=== PATIENT | female | born 1995 | race Caucasian/White ===

== ENCOUNTER 2020-05-08 15:57 | Emergency (ER) | payer OTHER ==
[~2020-05-08] VITALS: Ht 154.9 cm; Wt 65.8 kg
[2020-05-08] MEDS ORDERED: PRENATAL + DHA1 EAC1 (16:06)
[2020-05-08] MEDS ORDERED: FIORINAL 50-321 EACH PO (20:57)
== END 2020-05-08 21:52 | disposition home or self-care (01) ==
LOC: ER 15:57
DX: O26.891 Other specified pregnancy related conditions, first trimester (principal); R51.9 Headache, unspecified; Z3A.10 10 weeks gestation of pregnancy; Z03.818 Encounter for observation for suspected exposure to other biological agents ruled out

== ENCOUNTER → 2020-07-17 | Outpatient (CLI) | payer OTHER ==
[~2020-07-17] MED LIST: FIORINAL 50-321 EACH PO; PRENATAL + DHA1 EAC1
== END | disposition home or self-care (01) ==
LOC: PRENATAL 08:00
PROVIDERS: ATTEND Obstetrics & Gynecology Maternal & Fetal Medicine
DX: O35.0XX1 Maternal care for (suspected) central nervous system malformation in fetus, fetus 1 (principal); O35.3XX1 Maternal care for (suspected) damage to fetus from viral disease in mother, fetus 1; O98.512 Other viral diseases complicating pregnancy, second trimester; Z36.89 Encounter for other specified antenatal screening; Z3A.21 21 weeks gestation of pregnancy

== ENCOUNTER 2020-08-28 14:10 | Outpatient (CLI) | payer OTHER | END 2020-08-28 19:55 | disposition home or self-care (01) | LOC: OBS/DEL 14:10 | PROVIDERS: ATTEND Obstetrics & Gynecology | DX: O26.892 Other specified pregnancy related conditions, second trimester (principal); R10.2 Pelvic and perineal pain; Z3A.37 37 weeks gestation of pregnancy ==

== ENCOUNTER 2020-09-03 07:05 | Inpatient (IN) | payer OTHER ==
[~2020-09-03] VITALS: Ht 154.9 cm; Wt 73.5 kg
[2020-09-04] MEDS ORDERED: ATABEX OB TABL1 EACH PO (08:38)
== END 2020-09-04 14:33 | disposition home or self-care (01) | DRG 833 ==
LOC: OBS/DEL 07:05 → LDR 09:43
PROVIDERS: ADMIT Obstetrics & Gynecology; ATTEND Obstetrics & Gynecology
PROC: BY4FZZZ Ultrasonography of Third Trimester, Single Fetus (ICD-10-PCS; principal; 2020-09-03)
PROC: BT4JZZZ Ultrasonography of Kidneys and Bladder (ICD-10-PCS; 2020-09-03)
DX: O99.891 Other specified diseases and conditions complicating pregnancy (principal); N20.0 Calculus of kidney; Z3A.28 28 weeks gestation of pregnancy; Z20.822 Contact with and (suspected) exposure to COVID-19

== ENCOUNTER 2020-11-05 12:35 | Outpatient (CLI) | payer OTHER ==
[~2020-11-05 12:35] MED LIST changes: +ATABEX OB TABL1 EACH PO
== END 2020-11-06 16:27 | disposition home or self-care (01) ==
LOC: OBS/DEL 12:35
PROVIDERS: ATTEND Obstetrics & Gynecology
DX: O47.1 False labor at or after 37 completed weeks of gestation (principal); Z3A.37 37 weeks gestation of pregnancy

== ENCOUNTER 2020-11-07 17:11 | Inpatient (IN) | payer OTHER ==
[~2020-11-07] VITALS: Ht 154.9 cm; Wt 78.5 kg
== END 2020-11-10 15:51 | disposition home or self-care (01) | DRG 788 ==
LOC: LDR 17:11 → OB/GYN 22:57
PROVIDERS: ADMIT Obstetrics & Gynecology; ATTEND Obstetrics & Gynecology
PROC: 4A1HXFZ Monitoring of Products of Conception, Cardiac Rhythm, External Approach (ICD-10-PCS; 2020-11-07)
PROC: 10D00Z1 Extraction of Products of Conception, Low, Open Approach (ICD-10-PCS; principal; 2020-11-07 19:00)
DX: O65.5 Obstructed labor due to abnormality of maternal pelvic organs (principal); O34.211 Maternal care for low transverse scar from previous cesarean delivery; Z37.0 Single live birth; Z3A.37 37 weeks gestation of pregnancy; Z20.822 Contact with and (suspected) exposure to COVID-19

== ENCOUNTER 2020-11-14 16:33 | Emergency (ER) | payer OTHER ==
[~2020-11-14] VITALS: Ht 154.9 cm; Wt 72.6 kg
[2020-11-14] MEDS ORDERED: MOTRIN PM CAPL1 EACH (16:54)
== END 2020-11-14 21:01 | disposition home or self-care (01) ==
LOC: ER 16:33
DX: T78.49XA Other allergy, initial encounter (principal); R21 Rash and other nonspecific skin eruption

== ENCOUNTER 2022-03-03 16:22 | Emergency (ER) | payer OTHER ==
[~2022-03-03] VITALS: Ht 154.9 cm; Wt 74.8 kg
[~2022-03-03 16:22] MED LIST changes: +MOTRIN PM CAPL1 EACH
[2022-03-03] MEDS ORDERED: PRENATAL TABLE1 EAC5 PO (16:58)
== END 2022-03-04 02:31 ==
LOC: ER 16:22
DX: O26.892 Other specified pregnancy related conditions, second trimester (principal); K52.89 Other specified noninfective gastroenteritis and colitis; Z3A.14 14 weeks gestation of pregnancy

== ENCOUNTER 2022-04-04 15:53 | Outpatient (CLI) | payer OTHER ==
[~2022-04-04 15:53] MED LIST changes: +PRENATAL TABLE1 EAC5 PO
== END 2022-04-04 17:09 | disposition home or self-care (01) ==
LOC: PRENATAL 15:53
PROVIDERS: ATTEND Obstetrics & Gynecology Maternal & Fetal Medicine
DX: O35.9XX0 Maternal care for (suspected) fetal abnormality and damage, unspecified, not applicable or unspecified (principal); O35.3XX0 Maternal care for (suspected) damage to fetus from viral disease in mother, not applicable or unspecified; O34.219 Maternal care for unspecified type scar from previous cesarean delivery; Z3A.20 20 weeks gestation of pregnancy

== ENCOUNTER 2022-05-17 04:23 | Emergency (ER) | payer OTHER ==
[~2022-05-17] VITALS: Ht 154.9 cm; Wt 79.8 kg
== END 2022-05-17 11:00 | disposition home or self-care (01) ==
LOC: ER 04:23
DX: R51.9 Headache, unspecified (principal); Z20.822 Contact with and (suspected) exposure to COVID-19

== ENCOUNTER 2022-08-11 00:20 | Inpatient (IN) | payer OTHER ==
[~2022-08-11] VITALS: Ht 154.9 cm; Wt 3.6 kg
== END 2022-08-14 13:33 | disposition home or self-care (01) | DRG 788 ==
LOC: LDR 00:20 → OB/GYN 00:20 → O/R 11:52 → OB/GYN 15:20
PROVIDERS: ADMIT Obstetrics & Gynecology; ATTEND Obstetrics & Gynecology
PROC: 4A1HXCZ Monitoring of Products of Conception, Cardiac Rate, External Approach (ICD-10-PCS; 2022-08-11)
PROC: 10D00Z1 Extraction of Products of Conception, Low, Open Approach (ICD-10-PCS; principal; 2022-08-11 13:30)
DX: O34.211 Maternal care for low transverse scar from previous cesarean delivery (principal); Z3A.38 38 weeks gestation of pregnancy; Z37.0 Single live birth; Z20.822 Contact with and (suspected) exposure to COVID-19

== ENCOUNTER 2022-11-29 10:38 | Emergency (ER) | payer OTHER ==
[~2022-11-29] VITALS: Ht 154.9 cm; Wt 72.6 kg
== END 2022-11-29 12:56 | disposition home or self-care (01) ==
LOC: ER 10:38
DX: H10.12 Acute atopic conjunctivitis, left eye (principal)